=== PATIENT | female | born 1965 | race Caucasian/White ===

== ENCOUNTER 2020-12-28 06:19 | Inpatient (IN) | payer BC, OTHER ==
[~2020-12-28] VITALS: Ht 162.6 cm; Wt 165.5 kg
[2020-12-28] MEDS ORDERED: FUROSEMIDE 40 MG/4 ML VIAL IV ONE (06:45)
[2020-12-28] MEDS ORDERED: PIPERACILLIN-TAZOB 3.375GM 100 ML IV ONE (06:45)
[2020-12-28 07:14] LABS: Basophils # (auto) 0.1 10 ^3/uL (0-0.2); Basophils % (auto) 0.8 % (0.0-2.0); Eosinophils # (auto) 0.1 10 ^3/uL (0-0.8); Eosinophils % (auto) 0.7 % (0.0-7.0); Hematocrit 38.9 % (36.0-46.0); Lymphocytes # (auto) 0.9 10 ^3/uL (0.4-5.4); Lymphocytes % (auto) 7.1 % (10.0-50.0); Mean Corpuscular Hemoglobin 27.4 pg (28.0-32.0); Mean Corpuscular Volume 88.5 fL (80.0-100.0); Monocytes # (auto) 0.5 10 ^3/uL (0-1.3); Monocytes % (auto) 4.3 % (0.0-12.0); Neutrophils # (auto) 10.7 10 ^3/uL (1.6-8.6); Neutrophils % (auto) 87.1 % (37.0-80.0); Nucleated Red Blood Cells % 0.1 %; Red Blood Cells 4.39 10^6/uL (4.0-5.20); Red Cell Distribution Width 16.7 % (11.8-14.3); White Blood Cell 12.3 10^3/uL (4.4-10.8)
[2020-12-28 07:28] LABS: INR 1.09 (0.9-1.15); Partial Thromboplastin Time 26.2 sec (23.0-31.2)
[2020-12-28 07:34] LABS: Albumin 3.8 g/dL (3.4-5.0); BUN/Creatinine Ratio 12.9; Calcium 8.6 mg/dL (8.5-10.1)
[2020-12-28 07:38] LABS: Bilirubin, Total 0.4 mg/dL (0.2-1.0); Total Protein 8.2 g/dL (6.4-8.2)
[2020-12-28 07:43] LABS: Potassium 6.4 mmol/L (3.5-5.1)
[2020-12-28] MEDS ORDERED: SODIUM BICARBONATE 8.4% INJ 50ML SYRINGE IV ONE (07:45)
[2020-12-28] MEDS ORDERED: CALCIUM GLUC 4.65meq/50ml D5AE 50 ML IV ONE (07:45)
[2020-12-28] MEDS ORDERED: DEXTROSE (50%) 50ML SYRG IV ONE (07:45)
[2020-12-28] MEDS ORDERED: ALBUTEROL SULF 2.5 MG/0.5ML(0.5%) NEB SOLN NEB ONE (07:45)
[2020-12-28] MEDS ORDERED: InsuLIN REG 1unit/0.01ml Soln (100units/ml) IV ONE (07:45)
[2020-12-28] MEDS ORDERED: SODIUM ZIRCONIUM CYCL 10 GM PAK PO ONE (07:45)
[2020-12-28] MEDS ORDERED: FUROSEMIDE 20 MG/2 ML VIAL IV ONE (07:45)
[2020-12-28] MEDS ORDERED: SODIUM CHLORIDE 0.9% 1,000 ML IV ONE (09:45)
[2020-12-28] MEDS ORDERED: MORPHINE SULFATE INJECTION 2 MG/ML SYRG IV PRN (09:45)
[2020-12-28] MEDS ORDERED: SODIUM CHLORIDE 0.9% 1,000 ML IV SCH (09:45)
[2020-12-28] MEDS ORDERED: NITROGLYCERIN 0.4 MG SL TAB SL PRN (09:45)
[2020-12-28] MEDS ORDERED: cefTRIAXone 1GM/50ML D5W 50 ML IV SCH (10:00)
[2020-12-28] MEDS ORDERED: SODIUM BICARBONATE 50ML VIAL 75 ML in SOD CHL 0.45% 1,000 ML IV ONE (10:15)
[2020-12-28] MEDS: NOREPINEPHRINE 8 MG/250ML KIT 250 ML IV SCH (18:23)
[2020-12-29] VITALS (25 sets, daily range): BP systolic 84–128; BP diastolic 35–71
[2020-12-29] MEDS: NOREPINEPHRINE 8 MG/250ML KIT 250 ML IV SCH (04:20)
[2020-12-29 07:10] LABS: Basophils # (auto) 0.2 10 ^3/uL (0-0.2); Eosinophils # (auto) 0 10 ^3/uL (0-0.8); Eosinophils % (auto) 0.2 % (0.0-7.0); Hematocrit 38.4 % (36.0-46.0); Lymphocytes % (auto) 6.2 % (10.0-50.0); Mean Corpuscular Hemoglobin 27.6 pg (28.0-32.0); Mean Corpuscular Hgb Conc. 31.3 g/dL (32.0-36.0); Mean Corpuscular Volume 88.2 fL (80.0-100.0); Monocytes # (auto) 0.9 10 ^3/uL (0-1.3); Monocytes % (auto) 5.4 % (0.0-12.0); Neutrophils # (auto) 13.8 10 ^3/uL (1.6-8.6); Neutrophils % (auto) 87.2 % (37.0-80.0); Nucleated Red Blood Cells % 0.1 %; Red Blood Cells 4.35 10^6/uL (4.0-5.20); Red Cell Distribution Width 16.9 % (11.8-14.3); White Blood Cell 15.8 10^3/uL (4.4-10.8)
[2020-12-29 07:33] LABS: BUN/Creatinine Ratio 13.4
[2020-12-29 07:40] LABS: Potassium 6.6 mmol/L (3.5-5.1)
[2020-12-29] MEDS: cefTRIAXone 1GM/50ML D5W 50 ML IV SCH (09:00)
[2020-12-29] MEDS ORDERED: InsuLIN REG 1unit/0.01ml Soln (100units/ml) ONE (09:44)
[2020-12-29] MEDS ORDERED: DEXTROSE 50% SYRINGE 50 ML IV ONE (09:45)
[2020-12-29] MEDS ORDERED: DEXTROSE (50%) 50ML SYRG IV ONE (09:45)
[2020-12-29] MEDS ORDERED: InsuLIN REG 1unit/0.01ml Soln (100units/ml) IV ONE (09:45)
[2020-12-29] MEDS ORDERED: CALCIUM CHL 100MG/ML 500 MG in D5W 5% 100 ML IV ONE (09:45)
[2020-12-29] MEDS ORDERED: SODIUM BICARBONATE 8.4% INJ 50ML SYRINGE IV ONE (09:45)
[2020-12-29] MEDS ORDERED: CALCIUM CHLOR(10%) 100MG/ML 10ML SYRINGE IV ONE (09:48)
[2020-12-29] MEDS: AZITHROMYCIN 500MG/ 250ML 250 ML IV SCH (10:00)
[2020-12-29] MEDS: HEPARIN SODIUM (PORCINE) 5000 UNITS/ML 1ML VIAL SC SCH ×2 (10:00→22:00)
[2020-12-29] MEDS: DexAMETHasone SOD PHOS 10MG/1ML VIAL INJ IV SCH (10:04)
[2020-12-29] MEDS: ZINC SULFATE 220mg CAP or TAB PO SCH (10:04)
[2020-12-29] MEDS: ASCORBIC ACID 500 MG TAB PO SCH ×2 (10:04→22:00)
[2020-12-29] MEDS: SODIUM BICARBONATE 50ML VIAL 150 ML in D5W 5% 1,000 ML IV SCH ×2 (11:30→19:10)
[2020-12-29] MEDS ORDERED: SODIUM CHLORIDE 0.9% 500 ML IV ONE (11:30)
[2020-12-29] MEDS ORDERED: BUMETANIDE 2.5mg/10ml (0.25 mg/ml) INJ IV ONE (11:30)
[2020-12-29] MEDS ORDERED: SODIUM BICARBONATE 8.4 % INJ 50ML VIAL IV ONE (13:45)
[2020-12-29] MEDS: SODIUM ZIRCONIUM CYCL 10 GM PAK PO SCH ×2 (14:11→22:00)
[2020-12-29] MEDS ORDERED: METF-370 PO (15:47)
[2020-12-29] MEDS ORDERED: CEPH500C PO (15:47)
[2020-12-29] MEDS ORDERED: LISI20TA28 PO (15:47)
[2020-12-29 16:35] LABS: Sodium Urine 150 mmol/L (40-220)
[2020-12-29 16:45] LABS: Creatinine, Urine 7 mg/dL (30.0-125.0)
[2020-12-29 16:46] LABS: Protein, Urine 247.1 mg/dL (0.0-11.9)
[2020-12-29 20:41] LABS: Albumin 3.2 g/dL (3.4-5.0); Calcium 8.4 mg/dL (8.5-10.1)
[2020-12-29 20:44] LABS: BUN/Creatinine Ratio 13.4; Bilirubin, Total 0.3 mg/dL (0.2-1.0); Total Protein 7.5 g/dL (6.4-8.2)
[2020-12-29 21:03] LABS: Potassium 6.5 mmol/L (3.5-5.1)
[2020-12-29] MEDS ORDERED: CALCIUM CHL 100MG/ML 1,000 MG in D5W 5% 100 ML IV ONE (21:30)
[2020-12-29] MEDS: NYSTATIN TOPICAL POWDER 15GM TOP SCH (22:00)
[2020-12-30] VITALS (73 sets, daily range): BP systolic 94–138; BP diastolic 25–73
[2020-12-30 00:03] LABS: Albumin 3.1 g/dL (3.4-5.0); Calcium 8.7 mg/dL (8.5-10.1)
[2020-12-30 00:07] LABS: BUN/Creatinine Ratio 13.1; Bilirubin, Total 0.3 mg/dL (0.2-1.0); Total Protein 7.4 g/dL (6.4-8.2)
[2020-12-30 00:10] LABS: Potassium 6.5 mmol/L (3.5-5.1)
[2020-12-30] MEDS ORDERED: SODIUM ZIRCONIUM CYCL 10 GM PAK PO ONE (01:30)
[2020-12-30] MEDS: SODIUM BICARBONATE 50ML VIAL 150 ML in D5W 5% 1,000 ML IV SCH ×2 (03:07→17:31)
[2020-12-30 04:30] LABS: Basophils # (auto) 0 10 ^3/uL (0-0.2); Basophils % (auto) 0.3 % (0.0-2.0); Eosinophils # (auto) 0 10 ^3/uL (0-0.8); Eosinophils % (auto) 0.1 % (0.0-7.0); Hematocrit 36.3 % (36.0-46.0); Hemoglobin 11.5 g/dL (12.2-16.2); Lymphocytes # (auto) 0.8 10 ^3/uL (0.4-5.4); Lymphocytes % (auto) 7.4 % (10.0-50.0); Mean Corpuscular Hemoglobin 27.7 pg (28.0-32.0); Mean Corpuscular Hgb Conc. 31.5 g/dL (32.0-36.0); Mean Corpuscular Volume 87.7 fL (80.0-100.0); Monocytes # (auto) 0.8 10 ^3/uL (0-1.3); Monocytes % (auto) 7.3 % (0.0-12.0); Neutrophils # (auto) 9.6 10 ^3/uL (1.6-8.6); Neutrophils % (auto) 84.9 % (37.0-80.0); Nucleated Red Blood Cells % 0.1 %; Red Blood Cells 4.14 10^6/uL (4.0-5.20); Red Cell Distribution Width 17.3 % (11.8-14.3); White Blood Cell 11.3 10^3/uL (4.4-10.8)
[2020-12-30 05:03] LABS: Calcium 8.8 mg/dL (8.5-10.1)
[2020-12-30 05:06] LABS: BUN/Creatinine Ratio 12.7
[2020-12-30 05:18] LABS: Potassium 6.1 mmol/L (3.5-5.1)
[2020-12-30] MEDS: SODIUM ZIRCONIUM CYCL 10 GM PAK PO SCH ×2 (06:02→14:00)
[2020-12-30] MEDS: cefTRIAXone 1GM/50ML D5W 50 ML IV SCH (09:00)
[2020-12-30] MEDS ORDERED: LORazepam 2MG/ML-1ML VIAL IV ONE (09:15)
[2020-12-30] MEDS ORDERED: HEPARIN 1,000 UNITS/ml 1ML VIAL IV ONE (09:15)
[2020-12-30] MEDS ORDERED: HEPARIN SODIUM (PORCINE) 5000 UNITS/ML 1ML VIAL ONE (09:23)
[2020-12-30] MEDS: NYSTATIN TOPICAL POWDER 15GM TOP SCH ×2 (10:00→21:46)
[2020-12-30] MEDS: HEPARIN SODIUM (PORCINE) 5000 UNITS/ML 1ML VIAL SC SCH ×2 (10:00→21:45)
[2020-12-30] MEDS: ZINC SULFATE 220mg CAP or TAB PO SCH (10:43)
[2020-12-30] MEDS: DexAMETHasone SOD PHOS 10MG/1ML VIAL INJ IV SCH (10:43)
[2020-12-30] MEDS: ASCORBIC ACID 500 MG TAB PO SCH ×2 (10:43→21:45)
[2020-12-30] MEDS: AZITHROMYCIN 500MG/ 250ML 250 ML IV SCH (10:43)
[2020-12-30] MEDS ORDERED: SODIUM BICARBONATE 8.4 % INJ 50ML VIAL IV ONE (11:30)
[2020-12-30] MEDS ORDERED: SODIUM CHL 0.9% 1000 ML BAG XX ONE (12:30)
[2020-12-30] MEDS: NOREPINEPHRINE 8 MG/250ML KIT 250 ML IV SCH (20:10)
[2020-12-30] MEDS ORDERED: DEXTROSE (50%) 50ML SYRG IV PRN (20:30)
[2020-12-30] MEDS: InsuLIN REG 1unit/0.01ml Soln (100units/ml) SC SCH (22:12)
[2020-12-30] MEDS: ACCU-CHEK COMFORT CURVE STRIP VI SCH (22:17)
[2020-12-31] VITALS (96 sets, daily range): BP systolic 74–118; BP diastolic 28–68
[2020-12-31] MEDS: SODIUM BICARBONATE 50ML VIAL 150 ML in D5W 5% 1,000 ML IV SCH (01:50)
[2020-12-31 06:13] LABS: Basophils # (auto) 0 10 ^3/uL (0-0.2); Basophils % (auto) 0.3 % (0.0-2.0); Eosinophils # (auto) 0 10 ^3/uL (0-0.8); Eosinophils % (auto) 0.3 % (0.0-7.0); Hematocrit 32.5 % (36.0-46.0); Hemoglobin 10.7 g/dL (12.2-16.2); Lymphocytes # (auto) 0.8 10 ^3/uL (0.4-5.4); Lymphocytes % (auto) 11.1 % (10.0-50.0); Mean Corpuscular Hemoglobin 28.3 pg (28.0-32.0); Mean Corpuscular Volume 85.8 fL (80.0-100.0); Monocytes # (auto) 0.6 10 ^3/uL (0-1.3); Monocytes % (auto) 8.6 % (0.0-12.0); Neutrophils # (auto) 5.8 10 ^3/uL (1.6-8.6); Neutrophils % (auto) 79.7 % (37.0-80.0); Nucleated Red Blood Cells % 0.2 %; Red Blood Cells 3.79 10^6/uL (4.0-5.20); Red Cell Distribution Width 16.9 % (11.8-14.3); White Blood Cell 7.2 10^3/uL (4.4-10.8)
[2020-12-31 06:31] LABS: Calcium 7.8 mg/dL (8.5-10.1); Potassium 4.5 mmol/L (3.5-5.1)
[2020-12-31 06:38] LABS: BUN/Creatinine Ratio 10.8
[2020-12-31] MEDS: ACCU-CHEK COMFORT CURVE STRIP VI SCH ×4 (06:38→22:03)
[2020-12-31] MEDS: InsuLIN REG 1unit/0.01ml Soln (100units/ml) SC SCH ×4 (06:38→22:03)
[2020-12-31] MEDS: cefTRIAXone 1GM/50ML D5W 50 ML IV SCH (08:58)
[2020-12-31] MEDS: ASCORBIC ACID 500 MG TAB PO SCH ×2 (09:02→21:58)
[2020-12-31] MEDS: ZINC SULFATE 220mg CAP or TAB PO SCH (09:02)
[2020-12-31] MEDS: DexAMETHasone SOD PHOS 10MG/1ML VIAL INJ IV SCH (09:02)
[2020-12-31] MEDS: HEPARIN SODIUM (PORCINE) 5000 UNITS/ML 1ML VIAL SC SCH ×2 (09:03→21:57)
[2020-12-31] MEDS ORDERED: ONDANSETRON HCL 4 MG/2 ML VIAL ONE (10:01)
[2020-12-31] MEDS: NYSTATIN TOPICAL POWDER 15GM TOP SCH ×2 (10:25→21:58)
[2020-12-31] MEDS: NOREPINEPHRINE 8 MG/250ML KIT 250 ML IV SCH (10:28)
[2020-12-31] MEDS: AZITHROMYCIN 500MG/ 250ML 250 ML IV SCH (10:33)
[2020-12-31] MEDS ORDERED: BUMETANIDE INJECTION 12.5 MG in GIVE UN-DILUTED 0 ML IV SCH (10:45)
[2020-12-31] MEDS: SODIUM CHLORIDE 0.9% 1,000 ML IV SCH (11:00)
[2020-12-31 11:08] LABS: Hepatitis A Ab IgM Negative
[2020-12-31 11:09] LABS: Hepatitis B Core IgM Negative; Hepatitis B Surface Antigen Negative (Negative); Hepatitis C Antibody Negative (Negative)
[2020-12-31] MEDS: HYDROcodone-ACET 10/325MG TAB PO PRN (16:15)
[2020-12-31] MEDS: ONDANSETRON HCL 4 MG/2 ML VIAL IV PRN (20:23)
[2021-01-01] VITALS (98 sets, daily range): BP systolic 69–194; BP diastolic 22–79
[2021-01-01] MEDS: ONDANSETRON HCL 4 MG/2 ML VIAL IV PRN (00:20)
[2021-01-01 00:36] LABS: BUN/Creatinine Ratio 10.5; Calcium 7.7 mg/dL (8.5-10.1); Magnesium 2.1 mg/dL (1.6-2.6); Potassium 4.6 mmol/L (3.5-5.1)
[2021-01-01] MEDS: SODIUM CHLORIDE 0.9% 1,000 ML IV SCH (02:45)
[2021-01-01] MEDS: HYDROcodone-ACET 10/325MG TAB PO PRN (02:55)
[2021-01-01] MEDS ORDERED: PHENYLEPHRINE IV 250 ML IV ONE (03:53)
[2021-01-01] MEDS ORDERED: ETOMIDATE (2MG/ML) 20ML VIAL IV ONE (04:30)
[2021-01-01] MEDS ORDERED: SUCCINYLCHOLINE CHLORIDE 20 MG/ML 10ML VIAL IV ONE (04:31)
[2021-01-01] MEDS ORDERED: MIDAZOLAM DRIP 50 mg/50mL 50 ML IV ONE ×2 (04:33→05:00)
[2021-01-01 04:48] LABS: Basophils # (auto) 0.1 10 ^3/uL (0-0.2); Eosinophils # (auto) 0 10 ^3/uL (0-0.8); Eosinophils % (auto) 0.1 % (0.0-7.0); Hemoglobin 12.8 g/dL (12.2-16.2); Red Cell Distribution Width 17.2 % (11.8-14.3)
[2021-01-01 04:51] LABS: Basophils % (auto) 0.5 % (0.0-2.0); Hematocrit 41.1 % (36.0-46.0); Lymphocytes # (auto) 1.4 10 ^3/uL (0.4-5.4); Lymphocytes % (auto) 10.6 % (10.0-50.0); Mean Corpuscular Hemoglobin 27.4 pg (28.0-32.0); Mean Corpuscular Hgb Conc. 31.2 g/dL (32.0-36.0); Mean Corpuscular Volume 87.9 fL (80.0-100.0); Monocytes # (auto) 1.2 10 ^3/uL (0-1.3); Monocytes % (auto) 9.1 % (0.0-12.0); Neutrophils # (auto) 10.3 10 ^3/uL (1.6-8.6); Neutrophils % (auto) 79.7 % (37.0-80.0); Nucleated Red Blood Cells % 0.6 %; Red Blood Cells 4.67 10^6/uL (4.0-5.20); White Blood Cell 12.9 10^3/uL (4.4-10.8)
[2021-01-01 05:02] LABS: INR 1.08 (0.9-1.15); Partial Thromboplastin Time 25.4 sec (23.0-31.2)
[2021-01-01 05:04] LABS: BUN/Creatinine Ratio 11.5; Calcium 8.2 mg/dL (8.5-10.1); Potassium 4.8 mmol/L (3.5-5.1)
[2021-01-01] MEDS: PHENYLEPHRINE IV 250 ML IV SCH ×3 (05:17→20:40)
[2021-01-01] MEDS: MIDAZOLAM DRIP 50 mg/50mL 50 ML IV SCH ×4 (05:19→22:17)
[2021-01-01] MEDS ORDERED: fentaNYL Drip 2500mCg/250mlNS 250 ML IV ONE (05:52)
[2021-01-01] MEDS: fentaNYL Drip 2500mCg/250mlNS 250 ML IV SCH (05:52)
[2021-01-01] MEDS: ACCU-CHEK COMFORT CURVE STRIP VI SCH ×4 (06:07→22:16)
[2021-01-01] MEDS: InsuLIN REG 1unit/0.01ml Soln (100units/ml) SC SCH ×4 (06:09→22:12)
[2021-01-01] MEDS: NOREPINEPHRINE 8 MG/250ML KIT 250 ML IV SCH ×3 (06:30→20:16)
[2021-01-01] MEDS: NYSTATIN TOPICAL POWDER 15GM TOP SCH ×2 (10:00→22:16)
[2021-01-01] MEDS: cefTRIAXone 1GM/50ML D5W 50 ML IV SCH (12:00)
[2021-01-01] MEDS: ASCORBIC ACID 500 MG TAB PO SCH ×2 (12:30→22:15)
[2021-01-01] MEDS: HEPARIN SODIUM (PORCINE) 5000 UNITS/ML 1ML VIAL SC SCH ×2 (12:30→22:15)
[2021-01-01] MEDS: DexAMETHasone SOD PHOS 10MG/1ML VIAL INJ IV SCH (12:30)
[2021-01-01] MEDS: ZINC SULFATE 220mg CAP or TAB PO SCH (12:30)
[2021-01-01] MEDS: AZITHROMYCIN 500MG/ 250ML 250 ML IV SCH (12:30)
[2021-01-02] VITALS (104 sets, daily range): BP systolic 78–132; BP diastolic 42–71
[2021-01-02] MEDS: MIDAZOLAM DRIP 50 mg/50mL 50 ML IV SCH ×7 (01:27→23:00)
[2021-01-02 04:38] LABS: Basophils # (auto) 0 10 ^3/uL (0-0.2); Basophils % (auto) 0.3 % (0.0-2.0); Eosinophils # (auto) 0 10 ^3/uL (0-0.8); Eosinophils % (auto) 0.3 % (0.0-7.0); Hematocrit 35.4 % (36.0-46.0); Hemoglobin 11.5 g/dL (12.2-16.2); Lymphocytes # (auto) 1.5 10 ^3/uL (0.4-5.4); Lymphocytes % (auto) 14.5 % (10.0-50.0); Mean Corpuscular Hemoglobin 27.7 pg (28.0-32.0); Mean Corpuscular Hgb Conc. 32.6 g/dL (32.0-36.0); Mean Corpuscular Volume 84.9 fL (80.0-100.0); Monocytes # (auto) 0.7 10 ^3/uL (0-1.3); Monocytes % (auto) 7.5 % (0.0-12.0); Neutrophils # (auto) 7.8 10 ^3/uL (1.6-8.6); Neutrophils % (auto) 77.4 % (37.0-80.0); Nucleated Red Blood Cells % 0.2 %; Red Blood Cells 4.17 10^6/uL (4.0-5.20); Red Cell Distribution Width 16.6 % (11.8-14.3)
[2021-01-02 04:46] LABS: BUN/Creatinine Ratio 10.1
[2021-01-02] MEDS: fentaNYL Drip 2500mCg/250mlNS 250 ML IV SCH ×2 (06:00→13:21)
[2021-01-02] MEDS: InsuLIN REG 1unit/0.01ml Soln (100units/ml) SC SCH ×4 (06:13→22:09)
[2021-01-02] MEDS: ACCU-CHEK COMFORT CURVE STRIP VI SCH ×4 (06:19→22:10)
[2021-01-02] MEDS: PHENYLEPHRINE IV 250 ML IV SCH ×3 (07:55→21:40)
[2021-01-02] MEDS: cefTRIAXone 1GM/50ML D5W 50 ML IV SCH (08:45)
[2021-01-02] MEDS: AZITHROMYCIN 500MG/ 250ML 250 ML IV SCH (10:05)
[2021-01-02] MEDS: DexAMETHasone SOD PHOS 10MG/1ML VIAL INJ IV SCH (10:05)
[2021-01-02] MEDS: ASCORBIC ACID 500 MG TAB PO SCH ×2 (10:05→22:07)
[2021-01-02] MEDS: NYSTATIN TOPICAL POWDER 15GM TOP SCH ×2 (10:06→22:08)
[2021-01-02] MEDS: ZINC SULFATE 220mg CAP or TAB PO SCH (10:06)
[2021-01-02] MEDS: HEPARIN SODIUM (PORCINE) 5000 UNITS/ML 1ML VIAL SC SCH ×2 (10:26→22:09)
[2021-01-02] MEDS: NOREPINEPHRINE 8 MG/250ML KIT 250 ML IV SCH ×2 (11:33→20:00)
[2021-01-02] MEDS: BUMETANIDE 2.5mg/10ml (0.25 mg/ml) INJ IV SCH (11:47)
[2021-01-02] MEDS: MEROPENEM 500MG IVPB 50 ML IV SCH (18:09)
[2021-01-03] VITALS (92 sets, daily range): BP systolic 83–157; BP diastolic 42–86
[2021-01-03] MEDS: MIDAZOLAM DRIP 50 mg/50mL 50 ML IV SCH ×3 (04:00→07:26)
[2021-01-03 04:02] LABS: Basophils # (auto) 0 10 ^3/uL (0-0.2); Basophils % (auto) 0.4 % (0.0-2.0); Eosinophils # (auto) 0 10 ^3/uL (0-0.8); Hematocrit 38.1 % (36.0-46.0); Hemoglobin 12.4 g/dL (12.2-16.2); Lymphocytes # (auto) 1.3 10 ^3/uL (0.4-5.4); Lymphocytes % (auto) 11.4 % (10.0-50.0); Mean Corpuscular Hemoglobin 27.4 pg (28.0-32.0); Mean Corpuscular Hgb Conc. 32.5 g/dL (32.0-36.0); Mean Corpuscular Volume 84.3 fL (80.0-100.0); Monocytes # (auto) 0.8 10 ^3/uL (0-1.3); Neutrophils # (auto) 9.2 10 ^3/uL (1.6-8.6); Neutrophils % (auto) 81.2 % (37.0-80.0); Nucleated Red Blood Cells % 0.5 %; Red Blood Cells 4.52 10^6/uL (4.0-5.20); Red Cell Distribution Width 16.8 % (11.8-14.3); White Blood Cell 11.4 10^3/uL (4.4-10.8)
[2021-01-03 04:16] LABS: Potassium 4.3 mmol/L (3.5-5.1)
[2021-01-03 04:21] LABS: Albumin 2.9 g/dL (3.4-5.0); Calcium 8.1 mg/dL (8.5-10.1)
[2021-01-03 04:37] LABS: Total Protein 6.6 g/dL (6.4-8.2)
[2021-01-03 04:59] LABS: BUN/Creatinine Ratio 11.2
[2021-01-03 05:03] LABS: Bilirubin, Total 0.4 mg/dL (0.2-1.0)
[2021-01-03] MEDS: PHENYLEPHRINE IV 250 ML IV SCH ×2 (06:00→13:10)
[2021-01-03] MEDS: ACCU-CHEK COMFORT CURVE STRIP VI SCH ×4 (06:23→22:28)
[2021-01-03] MEDS: MEROPENEM 500MG IVPB 50 ML IV SCH ×2 (06:23→17:46)
[2021-01-03] MEDS: InsuLIN REG 1unit/0.01ml Soln (100units/ml) SC SCH ×4 (06:24→22:30)
[2021-01-03] MEDS: HEPARIN SODIUM (PORCINE) 5000 UNITS/ML 1ML VIAL SC SCH ×2 (10:00→22:00)
[2021-01-03] MEDS: NYSTATIN TOPICAL POWDER 15GM TOP SCH ×2 (10:25→22:28)
[2021-01-03] MEDS: DexAMETHasone SOD PHOS 10MG/1ML VIAL INJ IV SCH (10:25)
[2021-01-03] MEDS: ASCORBIC ACID 500 MG TAB PO SCH ×2 (10:25→22:28)
[2021-01-03] MEDS: AZITHROMYCIN 500MG/ 250ML 250 ML IV SCH (10:25)
[2021-01-03] MEDS: PANTOPRAZOLE 40 MG/10 ML VIAL INJ IV SCH (10:25)
[2021-01-03] MEDS: ZINC SULFATE 220mg CAP or TAB PO SCH (10:25)
[2021-01-03] MEDS: BUMETANIDE 2.5mg/10ml (0.25 mg/ml) INJ IV SCH (10:26)
[2021-01-03] MEDS ORDERED: EPINEPHrine HCL 250 ML IV ONE (13:11)
[2021-01-03] MEDS ORDERED: VASOPRESSIN 20 UNIT/ML ONE (13:12)
[2021-01-03] MEDS: VASOPRESSIN 50 UNITS in D5W 5% 247.5 ML IV SCH (13:15)
[2021-01-03] MEDS: EPINEPHrine HCL 250 ML IV SCH (13:15)
[2021-01-03 13:53] LABS: Magnesium 2.4 mg/dL (1.6-2.6); Potassium 4.8 mmol/L (3.5-5.1)
[2021-01-03] MEDS: SODIUM BICARBONATE 50ML VIAL 100 ML in SOD CHL 0.45% 1,000 ML IV SCH (16:53)
[2021-01-03] MEDS: NOREPINEPHRINE BITARTRATE 16 MG in SODIUM CHL 0.9% 234 ML IV SCH ×2 (19:15→19:30)
[2021-01-03] MEDS: PHENYLEPHRINE INJ 40 MG in SODIUM CHL 0.9% 246 ML IV SCH (19:15)
[2021-01-04] VITALS (91 sets, daily range): BP systolic 82–205; BP diastolic 12–98
[2021-01-04 04:13] LABS: Basophils # (auto) 0 10 ^3/uL (0-0.2); Basophils % (auto) 0.2 % (0.0-2.0); Eosinophils # (auto) 0 10 ^3/uL (0-0.8); Hematocrit 37.6 % (36.0-46.0); Hemoglobin 12.3 g/dL (12.2-16.2); Lymphocytes # (auto) 1.4 10 ^3/uL (0.4-5.4); Lymphocytes % (auto) 10.3 % (10.0-50.0); Mean Corpuscular Hemoglobin 27.7 pg (28.0-32.0); Mean Corpuscular Hgb Conc. 32.7 g/dL (32.0-36.0); Mean Corpuscular Volume 84.6 fL (80.0-100.0); Monocytes # (auto) 0.8 10 ^3/uL (0-1.3); Monocytes % (auto) 5.7 % (0.0-12.0); Neutrophils # (auto) 11.3 10 ^3/uL (1.6-8.6); Neutrophils % (auto) 83.8 % (37.0-80.0); Nucleated Red Blood Cells % 0.3 %; Red Blood Cells 4.45 10^6/uL (4.0-5.20); Red Cell Distribution Width 16.6 % (11.8-14.3); White Blood Cell 13.5 10^3/uL (4.4-10.8)
[2021-01-04 04:49] LABS: Albumin 2.7 g/dL (3.4-5.0); Potassium 4.6 mmol/L (3.5-5.1)
[2021-01-04 04:53] LABS: BUN/Creatinine Ratio 12.4; Bilirubin, Total 0.4 mg/dL (0.2-1.0); Total Protein 6.3 g/dL (6.4-8.2)
[2021-01-04] MEDS: SODIUM BICARBONATE 50ML VIAL 100 ML in SOD CHL 0.45% 1,000 ML IV SCH (05:00)
[2021-01-04] MEDS: fentaNYL Drip 2500mCg/250mlNS 250 ML IV SCH (05:48)
[2021-01-04] MEDS: MEROPENEM 500MG IVPB 50 ML IV SCH ×2 (06:00→22:00)
[2021-01-04] MEDS: ACCU-CHEK COMFORT CURVE STRIP VI SCH ×4 (06:40→23:00)
[2021-01-04 06:41] LABS: CRP High Sensitivity 1.35 mg/dL (< 0.3)
[2021-01-04] MEDS: InsuLIN REG 1unit/0.01ml Soln (100units/ml) SC SCH ×4 (06:43→23:00)
[2021-01-04] MEDS ORDERED: SODIUM CHL 0.9% 1000 ML BAG XX ONE (07:00)
[2021-01-04] MEDS: AZITHROMYCIN 500MG/ 250ML 250 ML IV SCH (09:48)
[2021-01-04] MEDS: ZINC SULFATE 220mg CAP or TAB PO SCH (09:49)
[2021-01-04] MEDS: DexAMETHasone SOD PHOS 10MG/1ML VIAL INJ IV SCH (09:49)
[2021-01-04] MEDS: ASCORBIC ACID 500 MG TAB PO SCH ×2 (09:49→22:00)
[2021-01-04] MEDS: BUMETANIDE 2.5mg/10ml (0.25 mg/ml) INJ IV SCH (09:49)
[2021-01-04] MEDS: PANTOPRAZOLE 40 MG/10 ML VIAL INJ IV SCH (09:49)
[2021-01-04] MEDS: HEPARIN SODIUM (PORCINE) 5000 UNITS/ML 1ML VIAL SC SCH (10:00)
[2021-01-04] MEDS: NYSTATIN TOPICAL POWDER 15GM TOP SCH ×2 (10:00→22:00)
[2021-01-04] MEDS ORDERED: EPINEPHrine HCL 1 MG/10 ML SYRG ONE (11:00)
[2021-01-04] MEDS ORDERED: SODIUM BICARBONATE 8.4% INJ 50ML SYRINGE ONE (11:00)
[2021-01-04] MEDS: PHENYLEPHRINE INJ 40 MG in SODIUM CHL 0.9% 246 ML IV SCH ×2 (11:55→20:00)
[2021-01-04] MEDS ORDERED: HEPARIN IN NS 1000Units/500mL 0 ML ONE (13:11)
[2021-01-04] MEDS ORDERED: CLOPIDOGREL 300 MG TAB PO ONE (13:15)
[2021-01-04] MEDS: EPINEPHrine HCL 250 ML IV SCH ×2 (13:15→17:30)
[2021-01-04] MEDS: VASOPRESSIN 50 UNITS in D5W 5% 247.5 ML IV SCH (13:15)
[2021-01-04] MEDS ORDERED: HEPARIN SODIUM (PORCINE) 5000 UNITS/ML 1ML VIAL IV ONE (13:15)
[2021-01-04] MEDS ORDERED: HEPARIN DRIP/D5W 100UNITS/ML 250 ML IV ONE (13:19)
[2021-01-04 13:21] LABS: Hemoglobin 12.6 g/dL (12.2-16.2)
[2021-01-04 13:23] LABS: Mean Corpuscular Hemoglobin 27.2 pg (28.0-32.0); Mean Corpuscular Hgb Conc. 31.5 g/dL (32.0-36.0); Mean Corpuscular Volume 86.2 fL (80.0-100.0); Red Blood Cells 4.64 10^6/uL (4.0-5.20); Red Cell Distribution Width 16.9 % (11.8-14.3)
[2021-01-04 13:33] LABS: White Blood Cell 31.3 10^3/uL (4.4-10.8)
[2021-01-04 13:34] LABS: Basophils % (manual) 0 (0.0-2.0); Blast Cells 0; Eosinophils % (manual) 0 (0-7); Metamyelocytes % 0; Myelocytes % 0; Promyelocytes % 0; Reactive Lymphocytes 0
[2021-01-04 13:37] LABS: INR 1.18 (0.9-1.15); Partial Thromboplastin Time 21.8 sec (23.0-31.2)
[2021-01-04] MEDS ORDERED: HEPARIN DRIP/D5W 100UNITS/ML 250 ML IV SCH (14:00)
[2021-01-04 14:11] LABS: Band Neutrophils % (manual) 6; Lymphocytes % (manual) 3 (10.0-50.0); Monocytes % (manual) 3 (0-12)
[2021-01-04] MEDS: MIDAZOLAM DRIP 50 mg/50mL 50 ML IV SCH (15:27)
[2021-01-04] MEDS: SODIUM BICARBONATE 50ML VIAL 150 ML in D5W 5% 1,000 ML IV SCH (15:40)
[2021-01-04] MEDS: NOREPINEPHRINE BITARTRATE 16 MG in SODIUM CHL 0.9% 234 ML IV SCH (19:50)
[2021-01-04] MEDS: LINEZOLID 600MG/300ML 300 ML IV SCH (20:00)
[2021-01-04] MEDS ORDERED: EPINEPHrine HCL 1 MG/10 ML SYRG IV ONE (20:40)
[2021-01-04] MEDS ORDERED: SODIUM BICARBONATE 8.4% INJ 50ML SYRINGE IV ONE (20:40)
[2021-01-05] VITALS (102 sets, daily range): BP systolic 93–155; BP diastolic 13–82
[2021-01-05] MEDS: VASOPRESSIN 50 UNITS in D5W 5% 247.5 ML IV SCH ×2 (00:46→12:51)
[2021-01-05] MEDS: SODIUM BICARBONATE 50ML VIAL 150 ML in D5W 5% 1,000 ML IV SCH ×2 (01:45→15:19)
[2021-01-05 05:11] LABS: Hematocrit 38.1 % (36.0-46.0); Mean Corpuscular Hemoglobin 27.5 pg (28.0-32.0); Mean Corpuscular Hgb Conc. 31.5 g/dL (32.0-36.0); Mean Corpuscular Volume 87.4 fL (80.0-100.0); Red Blood Cells 4.36 10^6/uL (4.0-5.20); Red Cell Distribution Width 16.9 % (11.8-14.3); White Blood Cell 27.8 10^3/uL (4.4-10.8)
[2021-01-05 05:22] LABS: INR 1.4 (0.9-1.15); Partial Thromboplastin Time 58.1 sec (23.0-31.2)
[2021-01-05 05:29] LABS: Potassium 5.3 mmol/L (3.5-5.1)
[2021-01-05] MEDS: PHENYLEPHRINE INJ 40 MG in SODIUM CHL 0.9% 246 ML IV SCH ×2 (05:35→12:50)
[2021-01-05] MEDS: NOREPINEPHRINE BITARTRATE 16 MG in SODIUM CHL 0.9% 234 ML IV SCH ×2 (05:36→15:20)
[2021-01-05 05:40] LABS: Albumin 2.6 g/dL (3.4-5.0); BUN/Creatinine Ratio 11.9; Bilirubin, Total 0.6 mg/dL (0.2-1.0); CRP High Sensitivity 2.06 mg/dL (< 0.3); Calcium 7.9 mg/dL (8.5-10.1); Total Protein 6.4 g/dL (6.4-8.2)
[2021-01-05 05:41] LABS: Basophils % (manual) 0 (0.0-2.0); Blast Cells 0; Eosinophils % (manual) 0 (0-7); Metamyelocytes % 0; Myelocytes % 0; Promyelocytes % 0; Reactive Lymphocytes 0
[2021-01-05] MEDS: fentaNYL Drip 2500mCg/250mlNS 250 ML IV SCH (06:00)
[2021-01-05] MEDS: ACCU-CHEK COMFORT CURVE STRIP VI SCH ×4 (06:51→22:00)
[2021-01-05] MEDS: InsuLIN REG 1unit/0.01ml Soln (100units/ml) SC SCH ×4 (06:52→22:00)
[2021-01-05] MEDS: LINEZOLID 600MG/300ML 300 ML IV SCH ×2 (08:01→20:00)
[2021-01-05 08:04] LABS: Band Neutrophils % (manual) 1; Lymphocytes % (manual) 11 (10.0-50.0); Monocytes % (manual) 4 (0-12)
[2021-01-05] MEDS ORDERED: SODIUM BICARBONATE 8.4 % INJ 50ML VIAL IV ONE (09:45)
[2021-01-05] MEDS: NYSTATIN TOPICAL POWDER 15GM TOP SCH ×2 (10:00→22:00)
[2021-01-05] MEDS: MEROPENEM 500MG IVPB 50 ML IV SCH ×2 (10:43→22:00)
[2021-01-05] MEDS: PANTOPRAZOLE 40 MG/10 ML VIAL INJ IV SCH (10:43)
[2021-01-05] MEDS: BUMETANIDE 2.5mg/10ml (0.25 mg/ml) INJ IV SCH (10:44)
[2021-01-05] MEDS: DexAMETHasone SOD PHOS 10MG/1ML VIAL INJ IV SCH (10:44)
[2021-01-05] MEDS: ASCORBIC ACID 500 MG TAB PO SCH ×2 (10:44→22:00)
[2021-01-05] MEDS: ZINC SULFATE 220mg CAP or TAB PO SCH (10:44)
[2021-01-05 11:24] LABS: INR 1.55 (0.9-1.15)
[2021-01-05 11:37] LABS: Partial Thromboplastin Time 105.3 sec (23.0-31.2)
[2021-01-05] MEDS: HEPARIN DRIP/D5W 100UNITS/ML 250 ML IV SCH (12:39)
[2021-01-06] VITALS (37 sets, daily range): BP systolic 99–162; BP diastolic 38–67
[2021-01-06] MEDS: SODIUM BICARBONATE 50ML VIAL 150 ML in D5W 5% 1,000 ML IV SCH (04:00)
[2021-01-06] MEDS: fentaNYL Drip 2500mCg/250mlNS 250 ML IV SCH ×2 (04:34→11:54)
[2021-01-06] MEDS: MIDAZOLAM DRIP 50 mg/50mL 50 ML IV SCH (04:34)
[2021-01-06 05:26] LABS: Hemoglobin 9.6 g/dL (12.2-16.2); Mean Corpuscular Hemoglobin 27.6 pg (28.0-32.0)
[2021-01-06 05:28] LABS: Hematocrit 30.1 % (36.0-46.0); Mean Corpuscular Hgb Conc. 31.7 g/dL (32.0-36.0); Mean Corpuscular Volume 86.9 fL (80.0-100.0); Red Blood Cells 3.46 10^6/uL (4.0-5.20); Red Cell Distribution Width 16.8 % (11.8-14.3)
[2021-01-06 05:41] LABS: White Blood Cell 36.5 10^3/uL (4.4-10.8)
[2021-01-06 05:43] LABS: Basophils % (manual) 0 (0.0-2.0); Blast Cells 0; Eosinophils % (manual) 0 (0-7); Lymphocytes % (manual) 0 (10.0-50.0); Metamyelocytes % 0; Myelocytes % 0; Promyelocytes % 0; Reactive Lymphocytes 0
[2021-01-06] MEDS: InsuLIN REG 1unit/0.01ml Soln (100units/ml) SC SCH ×2 (06:09→11:30)
[2021-01-06] MEDS: ACCU-CHEK COMFORT CURVE STRIP VI SCH ×2 (06:09→11:30)
[2021-01-06 06:59] LABS: BUN/Creatinine Ratio 11.5; Calcium 7.3 mg/dL (8.5-10.1); Potassium 4.7 mmol/L (3.5-5.1)
[2021-01-06] MEDS ORDERED: SODIUM CHL 0.9% 1000 ML BAG XX ONE (07:00)
[2021-01-06 09:16] LABS: Band Neutrophils % (manual) 2; Monocytes % (manual) 3 (0-12)
[2021-01-06] MEDS: BUMETANIDE 2.5mg/10ml (0.25 mg/ml) INJ IV SCH (10:00)
[2021-01-06] MEDS ORDERED: AMIODARONE HCL 150 MG in D5W 5% 100 ML IV ONE (11:15)
[2021-01-06] MEDS: EPINEPHrine HCL 250 ML IV SCH (11:22)
[2021-01-06] MEDS ORDERED: AMIODARONE 450mg/250ml AE 250 ML IV SCH ×2 (11:30→17:30)
[2021-01-06] MEDS: LINEZOLID 600MG/300ML 300 ML IV SCH (11:54)
[2021-01-06] MEDS: DexAMETHasone SOD PHOS 10MG/1ML VIAL INJ IV SCH (11:55)
[2021-01-06] MEDS: PANTOPRAZOLE 40 MG/10 ML VIAL INJ IV SCH (11:55)
[2021-01-06] MEDS: MEROPENEM 500MG IVPB 50 ML IV SCH (11:55)
[2021-01-06] MEDS: ZINC SULFATE 220mg CAP or TAB PO SCH (11:55)
[2021-01-06] MEDS: NYSTATIN TOPICAL POWDER 15GM TOP SCH (11:56)
[2021-01-06] MEDS: ASCORBIC ACID 500 MG TAB PO SCH (11:56)
[2021-01-06] MEDS: HEPARIN DRIP/D5W 100UNITS/ML 250 ML IV SCH (12:39)
[2021-01-06] MEDS ORDERED: LORazepam 2MG/ML-1ML VIAL ONE (13:52)
[2021-01-06] MEDS ORDERED: LORazepam 2MG/ML-1ML VIAL IV PRN (14:00)
[2021-01-06] MEDS ORDERED: EPOETIN ALFA-EPBX 10,000 UNIT/1ML VIAL SC ONE (21:00)
== END 2021-01-06 14:32 | DRG 870 ==
LOC: EDBD 06:19 → ER 06:19 → TELE 06:20 → ICU WEST 12-29 08:53
PROVIDERS: ADMIT Internal Medicine; ATTEND Internal Medicine
PROC: 5A09457 Assistance with Respiratory Ventilation, 24-96 Consecutive Hours, Continuous Positive Airway Pressure (ICD-10-PCS; principal; 2020-12-29)
PROC: 02H633Z Insertion of Infusion Device into Right Atrium, Percutaneous Approach (ICD-10-PCS; 2020-12-30)
PROC: 5A1D70Z Performance of Urinary Filtration, Intermittent, Less than 6 Hours Per Day (ICD-10-PCS; 2020-12-30)
PROC: B548ZZA Ultrasonography of Superior Vena Cava, Guidance (ICD-10-PCS; 2020-12-30)
PROC: 5A1955Z Respiratory Ventilation, Greater than 96 Consecutive Hours (ICD-10-PCS; 2021-01-01)
PROC: 0BH17EZ Insertion of Endotracheal Airway into Trachea, Via Natural or Artificial Opening (ICD-10-PCS; 2021-01-01)
PROC: 5A1D70Z Performance of Urinary Filtration, Intermittent, Less than 6 Hours Per Day (ICD-10-PCS; 2021-01-01)
PROC: 5A1D70Z Performance of Urinary Filtration, Intermittent, Less than 6 Hours Per Day (ICD-10-PCS; 2021-01-04)
DX: A41.89 Other specified sepsis (principal); J96.01 Acute respiratory failure with hypoxia; U07.1 COVID-19; N17.0 Acute kidney failure with tubular necrosis; J12.82 Pneumonia due to coronavirus disease 2019; G93.41 Metabolic encephalopathy; R65.21 Severe sepsis with septic shock; I21.4 Non-ST elevation (NSTEMI) myocardial infarction; L03.116 Cellulitis of left lower limb; G93.1 Anoxic brain damage, not elsewhere classified; E87.4 Mixed disorder of acid-base balance; Z68.43 Body mass index [BMI] 50.0-59.9, adult; I13.0 Hypertensive heart and chronic kidney disease with heart failure and stage 1 through stage 4 chronic kidney disease, or unspecified chronic kidney disease; Z16.21 Resistance to vancomycin; I50.32 Chronic diastolic (congestive) heart failure; Z66 Do not resuscitate; I46.9 Cardiac arrest, cause unspecified; E87.5 Hyperkalemia; E66.01 Morbid (severe) obesity due to excess calories; T39.315A Adverse effect of propionic acid derivatives, initial encounter; I36.1 Nonrheumatic tricuspid (valve) insufficiency; N18.9 Chronic kidney disease, unspecified; B96.5 Pseudomonas (aeruginosa) (mallei) (pseudomallei) as the cause of diseases classified elsewhere; B95.2 Enterococcus as the cause of diseases classified elsewhere; E11.22 Type 2 diabetes mellitus with diabetic chronic kidney disease; I27.20 Pulmonary hypertension, unspecified; Z79.84 Long term (current) use of oral hypoglycemic drugs; E11.40 Type 2 diabetes mellitus with diabetic neuropathy, unspecified; R57.0 Cardiogenic shock
CPT/HCPCS: 36415; 36600; 51702; 71045; 76604; 76775; 76856; 80048; 80053; 80074; 82550; 82570; 82728; 82805; 82962; 83036; 83605; 83735; 83880; 84132; 84156; 84300; 84484; 85007; 85025; 85027; 85379; 85610; 85730; 86141; 87040; 87070; 87077; 87081; 87186; 87205; 87426; 90935; 93005; 93306; 93970; 94002; 94003; 94644; 94660; 96365; 96368; 96375; 99291; C9113; G0378; J0171; J0330; J0610; J0696; J1100; J1642; J1815; J2185; J2250; J2405; J2543; J7060